=== PATIENT | male | born 1945 | race Caucasian/White ===

== ENCOUNTER 2017-04-02 12:29 | Emergency (ER) | payer MEDICARE, OTHER ==
--- NOTE | 2017-04-02 12:59 | EDM.PDOC ---
ED HPI GENERAL MEDICAL PROBLEM - General Chief Complaint: Lower Extremity Injury/Pain Stated Complaint: [facility] Time Seen by Provider: 04/02/17 12:30 Source of Information: Reports: Patient, EMS History Limitations: Reports: No Limitations - History of Present Illness INITIAL COMMENTS - FREE TEXT/NARRATIVE: 71-year-old male arrives via [facility] for evaluation treatment of left hip pain. Patient was reportedly walking downhill. He hit a patch of ice and slipped. He states that he landed onto the left hip. Reports immediate pain and inability to bear weight. Patient was carried inside by his sons. EMS was called. He received 1 mg IV Dilaudid and 100 mcgs of fentanyl en route to the ER. He is completely complaining of left hip pain. EMS appreciated external rotation and shortening of the left lower extremity. Patient reports he did not hit his head. No loss of consciousness. No neck pain, chest pain or abdominal pain. He did feel nauseous and lightheaded earlier but this has now resolved; Attributed this to pain. No anticoagulants. Last intake 10am, ate some cereal. Onset: Today Location: Reports: Pelvis (left hip) Other Treatments LITIGATION MANAGER: Fentanyl 100 and 1 dilaudid Left Upper Leg Pain Score (Numeric/FACES): 4 - Related Data Allergies Allergy/AdvReac Type Severity Reaction Status Date / Time No Known Allergies Allergy Verified 04/02/17 12:42 Home Meds: Home Meds Lisinopril 20 mg PO DAILY 04/02/17 [History] Meloxicam 15 mg PO DAILY 04/02/17 [History] Tamsulosin [Flomax] 0.4 mg PO DAILY 04/02/17 [History] atorvaSTATin [Lipitor] 20 mg PO DAILY 04/02/17 [History] Past Medical History HEENT History: Reports: Impaired Vision Respiratory History: Reports: Asthma Genitourinary History: Reports: Prostate Disorder, Renal Calculus Psychiatric History: Reports: Anxiety - Past Surgical History HEENT Surgical History: Reports: Adenoidectomy, Tonsillectomy Male Surgical History: Reports: Kidney Stone Extraction, Other (See Below) Other Male Surgeries/Procedures: Polyps removed Musculoskeletal Surgical History: Reports: Other (See Below) Other Musculoskeletal Surgeries/Procedures:: Neck surgery "cartilage trimming and placed a metal plate" Social & Family History - Family History Family Medical History: Noncontributory - Tobacco Use Smoking Status *Q: Never Smoker - Recreational Drug Use Recreational Drug Use: No Review of Systems - Review of Systems Review Of Systems: See Below Respiratory: Denies: Shortness of Breath Cardiovascular: Reports: Lightheadedness (earlier, now resolved). Denies: Chest Pain GI/Abdominal: Reports: Nausea (earlier, now resolved). Denies: Abdominal Pain, Vomiting Musculoskeletal: Reports: Other (left hip pain). Denies: Neck Pain, Back Pain Neurological: Denies: Numbness, Syncope, Tingling ED EXAM, GENERAL - Physical Exam Exam: See Below Exam Limited By: No Limitations General Appearance: Alert, WD/WN, No Apparent Distress Eye Exam: Bilateral Eye: Normal Inspection, PERRL Ears: Normal External Exam Nose: Normal Inspection Throat/Mouth: Normal Inspection, Normal Lips, Normal Voice, No Airway Compromise Head: Atraumatic, Normocephalic Neck: Normal Inspection, Supple, Non-Tender, Full Range of Motion Respiratory/Chest: No Respiratory Distress, Lungs Clear, Normal Breath Sounds Cardiovascular: Normal Peripheral Pulses, Regular Rate, Rhythm, No Murmur Peripheral Pulses: 3+: Posterior Tibial (L), Posterior Tibial (R), Dorsalis Pedis (L), Dorsalis Pedis (R) GI/Abdominal: Soft, Non-Tender Back Exam: Normal Inspection Extremities: Other (left leg is externally rotated and shortened; pain with rotation of the left hip - ROM deferred; no pain with rotation of the right hip. ) Neurological: Alert, Oriented, Normal Cognition Psychiatric: Normal Affect, Normal Mood Skin Exam: Warm, Dry, Normal Color EKG INTERPRETATION EKG Date: 04/02/17 Time: 13:35 Rhythm: NSR Rate (Beats/Min): 58 [place]: Normal P-Wave: Present QRS: Normal ST-T: Normal QT: Normal EKG Interpretation Comments: Sinus bradycardia at 58 bpm. Nonspecific IVCD. Otherwise normal ECG. Reviewed by myself and Dr. Carney. Course - Vital Signs Last Recorded V/S: Last Vital Signs Temp 36.6 C 04/02/17 12:37 Pulse 50 L 04/02/17 12:37 Resp 18 04/02/17 12:37 BP 131/89 04/02/17 12:37 Pulse Ox 100 04/02/17 12:37 - Orders/Labs/Meds Orders: Active Orders 24 hr Category Date Time Status EKG Documentation Completion [RC] ASDIRECTED Care 04/02/17 13:09 Active Chest 1V Frontal [CR] Stat Exams 04/02/17 13:09 Taken Hip Min 2V or 3V w Pelvis Lt [CR] Stat Exams 04/02/17 12:41 Taken Lactated Ringers [Ringers, Lactated] 1,000 ml Med 04/02/17 13:15 Active IV ASDIRECTED EKG 12 Lead [EK] Stat Ther 04/02/17 13:09 Ordered Medication Orders Lactated Ringer's (Ringers, Lactated) 1,000 mls @ 100 mls/hr IV ASDIRECTED KAREN Last Admin: 04/02/17 13:44 Dose: 100 mls/hr Labs: Laboratory Tests 04/02/17 04/02/17 04/02/17 Range/Units 13:09 13:45 13:45 WBC 13.41 H (4.23-9.07) K/mm3 RBC 4.80 (4.63-6.08) M/mm3 Hgb 14.0 (13.7-17.5) gm/L Hct 41.3 (40.1-51.0) % MCV 86.0 (79.0-92.2) fl MCH 29.2 (25.7-32.2) pg MCHC 33.9 (32.2-35.5) g/dl RDW Std Deviation 39.5 (35.1-43.9) fL Plt Count 206 (163-337) K/mm3 MPV 9.9 (9.4-12.3) fl Neut % (Auto) 86.8 H (34.0-67.9) % Lymph % (Auto) 6.0 L (21.8-53.1) % [place] % (Auto) 6.6 (5.3-12.2) % Eos % (Auto) 0.4 L (0.8-7.0) Baso % (Auto) 0.1 (0.1-1.2) % Neut # (Auto) 11.63 H (1.78-5.38) K/mm3 Lymph # (Auto) 0.80 L (1.32-3.57) K/mm3 [place] # (Auto) 0.88 H (0.30-0.82) K/mm3 Eos # (Auto) 0.06 (0.04-0.54) K/mm3 Baso # (Auto) 0.02 (0.01-0.08) K/mm3 Manual Slide Review Abnormal smear PT 10.7 (8.0-13.0) SECONDS INR 0.98 APTT 24 (22-36) SECONDS Sodium 141 (136-145) mEq/L Potassium 4.1 (3.5-5.1) mEq/L Chloride 107 (98-107) mEq/L Carbon Dioxide 25 (21-32) mEq/L Anion Gap 13.1 (5-15) BUN 21 H (7-18) mg/dL Creatinine 1.2 (0.7-1.3) mg/dL Est Cr Clr Drug Dosing 64.73 mL/min Estimated GFR (MDRD) 60 (>60) mL/min BUN/Creatinine Ratio 17.5 (14-18) Glucose 112 (80-115) mg/dL Calcium 9.2 (8.5-10.1) mg/dL Total Bilirubin 1.4 H (0.2-1.0) mg/dL AST 18 (15-37) U/L ALT 25 (16-63) U/L Alkaline Phosphatase 53 (46-116) U/L Total Protein 6.5 (6.4-8.2) g/dl Albumin 3.9 (3.4-5.0) g/dl Globulin 2.6 gm/dL Albumin/Globulin Ratio 1.5 (1-2) Meds: Medications Generic Name Dose Route Start Last Admin Trade Name Freq PRN Reason Stop Dose Admin Lactated Ringer's 1,000 mls @ 100 mls/hr 04/02/17 13:15 04/02/17 13:44 Ringers, Lactated IV 100 mls/hr ASDIRECTED KAREN Administration Discontinued Medications Generic Name Dose Route Start Last Admin Trade Name Freq PRN Reason Stop Dose Admin Hydromorphone HCl 1 mg 04/02/17 13:36 04/02/17 13:44 Dilaudid IVPUSH 04/02/17 13:37 1 mg ONETIME ONE Administration - Radiology Interpretation Free Text/Narrative:: X-ray of the left hip and pelvis shows a left intertrochanteric hip fracture. 1 view chest x-ray shows no acute intrathoracic process. Formal radiology read is pending. - Re-Assessments/Exams Free Text/Narrative Re-Assessment/Exam: 04/02/17 15:04 Reviewed the x-ray results with the patient. He does have a left intertrochanteric fracture. Discussed the case with Dr. Vallejo, orthopedics senior front end developer. Unfortunately, he will be out of town tomorrow afternoon. Able to surgery tomorrow morning but could not follow the patient for discharge. Discussed the case with our hospitalist, Dr. White, does not feel he should be admitted here without orthopedics to follow him. Recommended transfer to [place]. Contacted [facility] in [place]. Spoke with Dr. Garcia in the ER. He agrees to accept the patient. Dr. Peterson, orthopedics on-call, was in surgery at the time. Patient will either be a direct admission or go through the ER attending Dr. Peterson's approval. Patient will go by ground EMS to [facility]. Departure - Departure Time of Disposition: 15:05 Disposition: Home, Self-Care 01 Condition: Fair Clinical Impression: Intertrochanteric fracture of left femur - Discharge Information Forms: ED Department Discharge Additional Instructions: Patient to go by ambulance to [facility]. Dr. Torres in the ER is accepting. May be a direct admission pending Dr. Peterson. - My Orders Last 24 Hours: My Active Orders 04/02/17 12:41 Hip Min 2V or 3V w Pelvis Lt [CR] Stat 04/02/17 13:09 EKG Documentation Completion [RC] ASDIRECTED Chest 1V Frontal [CR] Stat EKG 12 Lead [EK] Stat 04/02/17 13:15 Lactated Ringers [Ringers, Lactated] 1,000 ml IV ASDIRECTED - Assessment/Plan Last 24 Hours: My Active Orders 04/02/17 12:41 Hip Min 2V or 3V w Pelvis Lt [CR] Stat 04/02/17 13:09 EKG Documentation Completion [RC] ASDIRECTED Chest 1V Frontal [CR] Stat EKG 12 Lead [EK] Stat 04/02/17 13:15 Lactated Ringers [Ringers, Lactated] 1,000 ml IV ASDIRECTED
[2017-04-02] MEDS ORDERED: Lactated Ringers 1,000 ML IV SCH (13:15)
[2017-04-02] MEDS ORDERED: HYDROmorphone 1 MG/ML Syringe IVPUSH ONE (13:36)
--- NOTE | 2017-04-02 15:15 | CR ---
Pelvis and left hip: AP view of the pelvis was obtained as well as AP and lateral views of the left hip. Intertrochanteric fracture is identified within the left hip. Joint spaces within both hips are maintained. Sacroiliac joints are unremarkable. No additional fracture or other bony abnormality is seen. Impression: 1. Intertrochanteric fracture within the left hip. Diagnostic code #5
--- NOTE | 2017-04-02 15:15 | CR ---
Chest: Frontal view of the chest was obtained utilizing portable technique. Comparison: No prior study. Heart size is normal. Mild tortuosity of the thoracic aorta is seen. Old healed rib fracture is seen within the right seventh rib. Lungs are clear with no acute pulmonary densities. Impression: 1. Incidental findings. Nothing acute is identified on portable chest x-ray. Diagnostic code #2
== END 2017-04-02 15:04 ==
LOC: JD.ED 12:29
DX: S72.142A Displaced intertrochanteric fracture of left femur, initial encounter for closed fracture (principal); J45.909 Unspecified asthma, uncomplicated; W17.89XA Other fall from one level to another, initial encounter; Z79.899 Other long term (current) drug therapy; Z87.442 Personal history of urinary calculi; Y93.29 Activity, other involving ice and snow
CPT/HCPCS: 36415; 71010; 73502; 80053; 85025; 85610; 85730; 93005; 96361; 96374; 99285; J1170; J7120; 93010; 99284-25